=== PATIENT | female | born 1985 | race Caucasian/White ===

== ENCOUNTER → 2017-01-12 | Day surgery (SDC) | payer OTHER, BC ==
[2016-12-27 15:09] VITALS: Ht 166.4 cm; Wt 75.0 kg
[~2017-01-12] VITALS: Ht 166.4 cm; Wt 75.0 kg
[~2017-01-12] MED LIST: ATROPINE SULFATE 0.1 MG/ML 5ML SYR IV PRN; BUPIVACAINE/EPINEPHRINE 0.25% 1:200,000 30 ML VIAL ONE; CEFAZOLIN 2000 MG/60 ML D5W IV SCH; DEXAMETHASONE SOD INJ 4 MG/ML VIAL ONE; EpHEDrine SULFATE 50MG/5ML SYR ONE; EpINEphrine INJ 1MG/ML AMP 1 MG/ML AMP ONE; FENTANYL CITRATE INJ 50 MCG/1 ML 2 ML VIAL IV PRN; FENTANYL CITRATE INJ 50 MCG/1 ML 2 ML VIAL ONE; KETO10TA PO; KETOROLAC TROMETHAMINE 30 MG/ML VIAL IV. PRN; LACTATED RINGER'S 1000ML 1,000 ML IV SCH; LIDOCAINE HCL 2% 2 ML VIAL (20MG/ML) ONE; MIDAZOLAM HCL 1 MG/ML 2ML VIAL ONE; ONDANSETRON INJ 2 MG/ML 2 ML VIAL IV PRN; ONDANSETRON INJ 2 MG/ML 2 ML VIAL ONE; OXYC-57 PO; OXYCODONE/ACETAMINOPHEN 5-325 TAB ONE; OXYCODONE/ACETAMINOPHEN 5-325 TAB PO PRN; PROMETHAZINE HCL INJ 12.5 MG in SODIUM CHLORIDE 0.9% 50ML 50 ML IV PRN; PROPOFOL IV EMULSION 10 MG/ML 20 ML VIAL IV ONE; ROCURONIUM BROMIDE 10 MG/ML 5 ML VIAL ONE; ROPIVACAINE 0.5% 5 MG/ML 30 ML VIAL ONE; SODIUM CHLORIDE 0.9% 1000ML 1,000 ML IV SCH; VNTHFA/IN INH
--- NOTE | 2017-01-12 07:01 | History & Physical Bridge - [place] ---
H&P Re-Evaluation Bridge Note: I have examined the patient, reviewed the History & Physical and in the interval since the performance of the History & Physical I have noted the following changes of clinical significance: No changes noted
--- NOTE | 2017-01-12 08:18 | Discharge Instructions-SurgCtr ---
Discharge Instructions Date of Service January 12, 2017. Visit Reason for Visit: Right Shoulder Impingement Syndrome Discharge Discharge Diagnosis / Problem: SAME ABOVE Discharge Goals Goal(s): Decrease discomfort, Improve function Activity Recommendations Activity Limitations: as noted below Lifting Limitations: gradually increase as tolerated Exercise/Sports Limitations: gradually increase as tolerated Shower/Bathe: tomorrow Driving or Machine Use: WHEN OUT OF THE SLING AND OFF OF PAIN MEDICATION Anesthesia . Post Anesthesia Instructions: If you have had General Anesthesia or IV Sedation: * Do not drive today. * Resume driving when surgeon permits. * Do not make important decisions or sign legal documents today. * Call surgeon for: 1. Temperature elevations greater than 101 degrees F. 2. Uncontrollable pain. 3. Excessive bleeding. 4. Persistent nausea and vomiting. 5. Medication intolerance (nausea, vomiting or rash). * For nausea and vomiting use only clear liquids such as: tea, soda, bouillon until nausea subsides, then gradually increase diet as tolerated. * If you have any concerns or questions, call your surgeon's office. If physician is unavailable and it is an emergency, call 911 or go to the nearest emergency room. . Instructions / Follow-Up Instructions / Follow-Up MEDICATIONS: * Resume previous medications unless instructed otherwise by your surgeon. * Always take pain medication on a full stomach or with food to avoid upset stomach. * Do not drink alcohol or drive while taking narcotics. * Ibuprofen or Tylenol may be taken if narcotic not needed. SPECIAL CARE INSTRUCTIONS: __ None X_ Keep extremity elevated and iced x 48 hours; apply ice 20-30 minutes 8-10 times/day. May remove at night. _X_ Sling (WEAR FOR COMFORT ONLY) __24 hrs/day __ Remove at night __ Shoulder Immobilizer __ 24 hrs/day __ Remove at night _X_ Dressing __ Maintain until seen in office, may shower with plastic over site _X_ Remove dressings in 24-48 hours and then may shower _X_ Cover incisions with band-aids after showering __ Do not remove steri-strips Call physician if chills or temperature rises above 102 degrees or pain unrelieved by prescribed pain medications at . . Diet Recommendations Home Diet: no limitations Fluid Restriction: None Procedures Procedures Performed: Right Shoulder Arthroscopy, Distal Clavicle Resection and Extensive Debridement Pending Studies Studies pending at discharge: no Work Instructions Return To Work: after follow-up Lifting Limitations: none Medical Emergencies . Who to Call and When: Medical Emergencies: If at any time you feel your situation is an emergency, please call 911 immediately. . Non-Emergent Contact Non-Emergency issues call your: Primary Care Provider Call Non-Emergent contact if: you have a fever, temperature is above 101.5 . . "Provider Documentation" section prepared by Daniel Vásquez. .
[2017-01-12 08:53] VITALS: TEMP 36
[2017-01-12 09:12] VITALS: BP 129/83; PULSE 58; O2SAT 99
--- NOTE | 2017-01-12 09:14 | Anesthesia Progress Nt - [facility] ---
Anesthesia Post Op Note Date & Time January 12, 2017 at 09:15 Vital Signs Pain Intensity: 3 Vital Signs Past 12 Hours Date Time Temp Pulse Resp B/P Pulse Ox O2 Delivery O2 Flow Rate FiO2 01/12/17 09:12 58 16 129/83 99 Room Air 01/12/17 08:53 36.0 66 16 124/90 98 Room Air 01/12/17 08:38 71 15 01/12/17 08:38 70 15 98 01/12/17 08:37 36.4 01/12/17 08:37 128/81 01/12/17 08:33 73 14 96 01/12/17 08:33 72 14 01/12/17 08:32 117/73 01/12/17 08:28 60 12 99 01/12/17 08:28 58 12 01/12/17 08:26 115/98 01/12/17 08:25 131/87 01/12/17 08:23 59 17 01/12/17 08:23 61 17 99 01/12/17 08:22 75/53 01/12/17 08:18 78 10 115/88 01/12/17 08:18 10 01/12/17 08:17 36.2 66 18 115/88 100 Diffusion Mask 6 01/12/17 07:16 73 01/12/17 07:16 72 17 113/78 100 01/12/17 07:11 67 01/12/17 07:11 64 18 125/82 100 01/12/17 07:09 132/98 01/12/17 07:06 74 0 01/12/17 07:01 71 0 01/12/17 06:56 65 0 01/12/17 06:51 69 0 01/12/17 06:26 36.6 81 16 123/88 98 Room Air Notes Mental Status: alert / awake / arousable, participated in evaluation Pt Amnestic to Procedure: Yes Nausea / Vomiting: adequately controlled Pain: adequately controlled Airway Patency, RR, SpO2: stable & adequate BP & HR: stable & adequate Hydration State: stable & adequate Anesthetic Complications: no major complications apparent
--- NOTE | 2017-01-12 09:45 | [facility] Post Operative Brief Note ---
Immediate Operative Summary Operative Date January 12, 2017. Pre-Operative Diagnosis Right Shoulder Impingement And AC Joint Arthritis Post-Operative Diagnosis Same Procedure(s) Performed Right Shoulder Arthroscopy, Distal Clavicle Resection and Extensive Debridement Surgeon Dr. Dodd Crucible Packer Surgeon(s) Denise Vásquez PA-C Estimated Blood Loss 5 ml Findings as above Specimens None Complication(s) None Disposition Recovery Room / PACU
--- NOTE | 2017-01-12 10:36 | OPERATIVE REPORT ---
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 POSTOPERATIVE DIAGNOSIS: Same. PROCEDURE: Right shoulder diagnostic arthroscopy with extensive debridement and distal clavicle resection. SURGEON: Dr. Homar Dodd. DATABASES COMPUTER CONSULTANT: Seymour Vásquez PA-C, whose assistance was necessary for positioning the arm and helping with instrumentation. ANESTHESIA: General with a right interscalene nerve block. COMPLICATIONS: None. CONDITION: Stable to PACU. INDICATIONS: Anais is a 31-year-old female who works at [employer]. She says she was lifting some objects overhead and felt a pop. Since that time she has had a lot of pain directly over the AC joint. MRI and clinical examination were diagnostic for AC joint arthritis. After failing extensive conservative treatment, she elected to undergo arthroscopy. OPERATION AND FINDINGS: PROCEDURE: On 01/12/2017 she arrived at [facility] for the above procedure. She was seen in the preoperative holding area and the operative extremity was identified and signed. She was given a preoperative antibiotic and a right interscalene nerve block. She was taken back to the operating room, laid on the table in supine position and put under general anesthesia. She was put into the beachchair position. The right shoulder was prepped and draped in sterile fashion. Time-out was done and the patient's operative extremity was properly identified. A scope was introduced in the posterior portal. Diagnostic arthroscopy showed no cartilage damage to the humeral head or the glenoid. The labrum was intact. There was no SLAP tears. The biceps tendon was intact and went through a normal biceps kay mechanism. The supraspinatus, infraspinatus, teres minor and subscapularis were all checked and intact. An anterior portal was made. The biceps tendon was pulled into the joint and there were no signs of biceps pathology. I did not see anything intra-articular. The scope was then put into the subacromial space. A lateral portal was made. A shaver was used to do an extensive debridement including complete subacromial and subdeltoid bursectomy. The coracoacromial ligament was teased off the undersurface of the acromion. There was not enough of an acromial hook to consider an acromioplasty. There was some red bursitis in the subacromial space which could also be painful. This was debrided. Attention was then turned to the distal clavicle. Through the anterior portal, a shaver and ablator were used to skeletonize the distal clavicle. A 5-0 anthony was then used to resect the distal 7 mm from the clavicle. Complete resection was checked under direct visualization. A final diagnostic arthroscopy showed no bursal-sided cuff tears and no additional pathology. A shaver was used to remove any excess debris. Arthroscopic instruments were removed from the shoulder. Portal sites were closed with 3-0 nylon. She was then placed in a soft dressing and a regular arm sling. She was then extubated, transferred to a litter and taken to the postanesthesia care unit in stable condition. She tolerated the procedure well. I attest to the content of the Intraoperative Record and any orders documented therein. Any exceptio ns are noted below.
== END | disposition home or self-care (01) ==
LOC: X.SURG 06:11
PROVIDERS: ATTEND Orthopaedic Surgery
DX: M19.011 Primary osteoarthritis, right shoulder (principal); J45.909 Unspecified asthma, uncomplicated; F17.210 Nicotine dependence, cigarettes, uncomplicated